=== PATIENT | female | born 1955 | race Caucasian/White ===

== ENCOUNTER 2016-11-01 09:10 | Inpatient (IN) | payer OTHER ==
[2016-11-03] MEDS ORDERED: FLU VACC QS2016-17 36MOS UP/PF 0.5 ML SYRINGE IM ONE (15:45)
[2016-11-03] MEDS ORDERED: traMADol HCl 50 MG TAB PO PRN ×2 (19:06)
[2016-11-03] MEDS ORDERED: Zolpidem Tartrate 5 MG TAB PO PRN (19:07)
[2016-11-03] MEDS ORDERED: Ondansetron ODT 4 MG TAB PO PRN (19:08)
[2016-11-03] MEDS ORDERED: Promethazine HCl 25 MG SUPP PR PRN (19:11)
[2016-11-03] MEDS ORDERED: RIZATRIPTAN PO PRN (19:11)
[2016-11-03] MEDS ORDERED: Bisacodyl 5 MG TAB PO PRN (19:13)
[2016-11-03] MEDS ORDERED: diphenhydrAMINE HCl 50 MG/ML 1 ML VIAL IVP PRN (19:14)
[2016-11-03] MEDS: HYDROcodone/Acetaminophen 5/325 mg Tablet PO PRN ×2 (19:33→23:53)
[2016-11-03] MEDS: Amitriptyline HCl 25 MG TAB PO SCH (20:32)
[2016-11-03] MEDS: Famotidine 20 MG TAB PO SCH (20:33)
[2016-11-03] MEDS: Docusate 100 MG CAP PO SCH (20:33)
[2016-11-03] MEDS: Atorvastatin Calcium 10 MG TAB PO SCH (20:33)
[2016-11-03] MEDS: Potassium Chloride 20 MEQ TAB PO SCH (20:34)
[2016-11-03] MEDS: Cyclobenzaprine 10 MG TAB PO PRN (21:07)
[2016-11-04] MEDS: HYDROcodone/Acetaminophen 5/325 mg Tablet PO PRN ×5 (05:53→22:45)
[2016-11-04] MEDS: Potassium Chloride 20 MEQ TAB PO SCH ×2 (09:48→20:30)
[2016-11-04] MEDS: predniSONE 20 MG TAB PO SCH (09:49)
[2016-11-04] MEDS: Docusate 100 MG CAP PO SCH ×2 (09:49→20:30)
[2016-11-04] MEDS: Famotidine 20 MG TAB PO SCH ×2 (09:55→20:30)
[2016-11-04] MEDS: TART CHERRY PO SCH (09:58)
[2016-11-04] MEDS: Bisacodyl 10 MG SUPP PR PRN (14:17)
[2016-11-04] MEDS: Atorvastatin Calcium 10 MG TAB PO SCH (20:30)
[2016-11-04] MEDS: Amitriptyline HCl 25 MG TAB PO SCH (20:30)
[2016-11-04] MEDS: Cyclobenzaprine 10 MG TAB PO PRN (23:31)
[2016-11-04] MEDS: Mag-Al Plus 1200 MG/1200 MG/120 MG/30 ML UDCUP PO PRN (23:55)
[2016-11-05] MEDS: Docusate 100 MG CAP PO SCH ×2 (08:38→20:43)
[2016-11-05] MEDS: predniSONE 20 MG TAB PO SCH (08:38)
[2016-11-05] MEDS: Famotidine 20 MG TAB PO SCH ×2 (08:38→20:44)
[2016-11-05] MEDS: Potassium Chloride 20 MEQ TAB PO SCH ×2 (08:38→20:44)
[2016-11-05] MEDS: HYDROcodone/Acetaminophen 5/325 mg Tablet PO PRN ×4 (08:39→23:46)
[2016-11-05] MEDS: TART CHERRY PO SCH (08:44)
[2016-11-05] MEDS: Mag-Al Plus 1200 MG/1200 MG/120 MG/30 ML UDCUP PO PRN (12:37)
[2016-11-05] MEDS ORDERED: HYDROcodone/Acetaminophen 5/325 mg Tablet ONE ×3 (19:00→23:44)
[2016-11-05] MEDS: Cyclobenzaprine 10 MG TAB PO PRN (19:03)
[2016-11-05] MEDS: Amitriptyline HCl 25 MG TAB PO SCH (20:44)
[2016-11-05] MEDS: Atorvastatin Calcium 10 MG TAB PO SCH (20:44)
[2016-11-06] MEDS ORDERED: RIZATRIPTAN 10 MG PO PRN ×2 (08:23→08:24)
[2016-11-06] MEDS: predniSONE 20 MG TAB PO SCH (08:53)
[2016-11-06] MEDS: Cyclobenzaprine 10 MG TAB PO PRN ×2 (08:53→21:10)
[2016-11-06] MEDS: Docusate 100 MG CAP PO SCH ×2 (08:53→21:12)
[2016-11-06] MEDS: Potassium Chloride 20 MEQ TAB PO SCH ×2 (08:53→21:11)
[2016-11-06] MEDS: Ascorbic Acid 500 mg Chewable Tablet PO SCH (08:54)
[2016-11-06] MEDS: Famotidine 20 MG TAB PO SCH ×2 (08:54→21:12)
[2016-11-06 11:01] VITALS: BMI 18.0
[2016-11-06] MEDS ORDERED: HYDROcodone/Acetaminophen 5/325 mg Tablet ONE (13:13)
[2016-11-06] MEDS: HYDROcodone/Acetaminophen 5/325 mg Tablet PO PRN ×3 (13:18→21:12)
[2016-11-06] MEDS: Atorvastatin Calcium 10 MG TAB PO SCH (21:10)
[2016-11-06] MEDS: Amitriptyline HCl 25 MG TAB PO SCH (21:12)
[2016-11-07] MEDS: HYDROcodone/Acetaminophen 5/325 mg Tablet PO PRN ×4 (01:08→19:57)
[2016-11-07] MEDS: Famotidine 20 MG TAB PO SCH ×2 (09:40→20:41)
[2016-11-07] MEDS: Potassium Chloride 20 MEQ TAB PO SCH ×2 (09:40→20:42)
[2016-11-07] MEDS: Ascorbic Acid 500 mg Chewable Tablet PO SCH (09:40)
[2016-11-07] MEDS: Cyclobenzaprine 10 MG TAB PO PRN (09:40)
[2016-11-07] MEDS: Docusate 100 MG CAP PO SCH ×2 (09:41→20:43)
[2016-11-07] MEDS: predniSONE 20 MG TAB PO SCH (09:41)
[2016-11-07] MEDS: Bisacodyl 10 MG SUPP PR PRN (11:01)
[2016-11-07] MEDS: Amitriptyline HCl 25 MG TAB PO SCH (20:42)
[2016-11-07] MEDS: Atorvastatin Calcium 10 MG TAB PO SCH (20:42)
[2016-11-08] MEDS: Cyclobenzaprine 10 MG TAB PO PRN (00:36)
[2016-11-08] MEDS: HYDROcodone/Acetaminophen 5/325 mg Tablet PO PRN ×2 (00:36→09:19)
[2016-11-08] MEDS: Famotidine 20 MG TAB PO SCH ×2 (09:22→21:42)
[2016-11-08] MEDS: Docusate 100 MG CAP PO SCH ×2 (09:22→21:42)
[2016-11-08] MEDS: Ascorbic Acid 500 mg Chewable Tablet PO SCH (09:22)
[2016-11-08] MEDS: Potassium Chloride 20 MEQ TAB PO SCH ×2 (09:23→21:43)
[2016-11-08] MEDS: predniSONE 20 MG TAB PO SCH (09:23)
[2016-11-08] MEDS: HYDROcodone/Acetaminophen 7.5/325 mg Tablet PO PRN ×2 (14:41→20:54)
[2016-11-08] MEDS: Amitriptyline HCl 25 MG TAB PO SCH (21:40)
[2016-11-08] MEDS: Atorvastatin Calcium 10 MG TAB PO SCH (21:41)
[2016-11-09] MEDS: HYDROcodone/Acetaminophen 7.5/325 mg Tablet PO PRN ×2 (01:56→20:48)
[2016-11-09] MEDS: Cyclobenzaprine 10 MG TAB PO PRN (01:58)
[2016-11-09] MEDS: HYDROcodone/Acetaminophen 10/325 mg Tablet PO PRN ×3 (06:04→16:37)
[2016-11-09] MEDS: Famotidine 20 MG TAB PO SCH ×2 (09:27→20:50)
[2016-11-09] MEDS: Docusate 100 MG CAP PO SCH ×2 (09:33→20:51)
[2016-11-09] MEDS: Ascorbic Acid 500 mg Chewable Tablet PO SCH (09:33)
[2016-11-09] MEDS: Potassium Chloride 20 MEQ TAB PO SCH ×2 (09:34→20:50)
[2016-11-09] MEDS: predniSONE 20 MG TAB PO SCH (09:37)
[2016-11-09] MEDS: Atorvastatin Calcium 10 MG TAB PO SCH (20:50)
[2016-11-09] MEDS: Amitriptyline HCl 25 MG TAB PO SCH (20:51)
[2016-11-10] MEDS ORDERED: Cyclobenzaprine 10 MG TAB ONE (01:02)
[2016-11-10] MEDS: Cyclobenzaprine 10 MG TAB PO PRN (01:06)
[2016-11-10] MEDS: HYDROcodone/Acetaminophen 7.5/325 mg Tablet PO PRN ×2 (01:06→11:33)
[2016-11-10] MEDS: HYDROcodone/Acetaminophen 10/325 mg Tablet PO PRN (06:24)
[2016-11-10 06:30] VITALS: BP 93/52; TEMP 98.5
[2016-11-10 06:50] LABS: #Basophils 0.1 thou/uL (0.0-0.2); #Lymphocytes 1.9 thou/uL (1.20-3.40); #Neutrophils 8.6 thou/uL (1.40-6.50); %Basophils 0.7 % (0.0-1.0); %Eosinophils 0.3 % (0.0-10.0); %Monocytes 8.6 % (0.0-10.0); Hematocrit 33.6 % (36.0-47.0); Mean Platelet Volume 4.7 fL (7.4-10.4); Red Blood Cell (RBC) Count 3.48 mill/uL (4.20-5.40); White Blood Cell (WBC) Count 11.7 thou/uL (4.8-10.8)
[2016-11-10] MEDS: Docusate 100 MG CAP PO SCH (10:37)
[2016-11-10] MEDS: Ascorbic Acid 500 mg Chewable Tablet PO SCH (10:37)
[2016-11-10] MEDS: Famotidine 20 MG TAB PO SCH (10:38)
[2016-11-10] MEDS: Potassium Chloride 20 MEQ TAB PO SCH (10:38)
[2016-11-10] MEDS: predniSONE 20 MG TAB PO SCH (10:39)
[2016-11-11] MEDS ORDERED: predniSONE 10 MG TAB PO SCH (09:00)
[2016-11-18] MEDS ORDERED: predniSONE 10 MG TAB PO SCH (09:00)
== END 2016-11-10 11:45 | disposition home or self-care (01) | DRG 687 ==
LOC: BURMED 11-03 15:08
PROVIDERS: ADMIT Family Medicine; ATTEND Family Medicine
DX: C65.2 Malignant neoplasm of left renal pelvis (principal); E27.40 Unspecified adrenocortical insufficiency; F32.9 Major depressive disorder, single episode, unspecified; Z98.890 Other specified postprocedural states; D64.9 Anemia, unspecified; K58.1 Irritable bowel syndrome with constipation; G25.81 Restless legs syndrome; G43.909 Migraine, unspecified, not intractable, without status migrainosus; E78.5 Hyperlipidemia, unspecified; G47.00 Insomnia, unspecified; F41.9 Anxiety disorder, unspecified
CPT/HCPCS: 36415; 85025; G8978-GP-CJ; G8979-GP-CI; G8987-GO-CJ; G8988-GO-CH; J7506; Q0162

== ENCOUNTER 2016-12-13 08:02 | Outpatient (CLI) | payer OTHER ==
[2016-12-13 09:11] LABS: ALT (SGPT) 17 U/L (0-55); AST (SGOT) 17 U/L (5-34); Albumin 4.5 g/dL (3.5-5.0); Alkaline Phosphatase 71 U/L (40-150); Anion Gap 14 mmol/L (10-20); BUN (Urea Nitrogen) 22 mg/dL (9.8-20.1); Bilirubin, Total 0.4 mg/dL (0.2-1.2); Calc. Creatinine Clearance 0 mL/min (70-130); Calcium 9.9 mg/dL (7.8-10.44); Carbon Dioxide 27 mmol/L (22-29); Chloride 105 mmol/L (98-107); Estimated GFR-MDRD 49; Globulin 2.6 g/dL (2.4-3.5); Glucose 90 mg/dL (70-105); Potassium 4.3 mmol/L (3.5-5.1); Protein, Total 7.1 g/dL (6.0-8.3); Sodium 142 mmol/L (136-145)
[2016-12-13 09:28] LABS: Free T4 (Free Thyroxine) 0.76 ng/dL (0.70-1.48); Thyroid Stimulating Hormone 1.1574 uIU/mL (0.35-4.94)
== END 2016-12-13 08:03 | disposition home or self-care (01) ==
LOC: BURLAB 08:02
PROVIDERS: ATTEND Internal Medicine Endocrinology, Diabetes & Metabolism
DX: I95.9 Hypotension, unspecified (principal)
CPT/HCPCS: 36415; 80053; 82024; 82533; 84439; 84443

== ENCOUNTER 2017-03-09 13:14 | Outpatient (CLI) | payer OTHER ==
[2017-03-09 13:36] LABS: Bilirubin Negative (Negative); Blood, Urine Moderate (Negative); Clarity Slightly Cloudy (Clear); Glucose, Urine (Dipstick) Negative (Negative); Leukocyte Small (Negative); Nitrite Positive (Negative); Protein, Urine (Dipstick) Trace mg/dL (Neg-Trace); Specific Gravity, Urine 1.015 (1.005-1.030); Urobilinogen 0.2 mg/dL (0.2-1.0)
[2017-03-09 13:45] LABS: Bacteria/HPF Rare-Few HPF (None Seen); Crystals/HPF None Seen HPF (Negative); Hyaline Casts/LPF NONE SEEN LPF (0-3 Hyaline); Other Casts/LPF None Seen LPF (0-3 Hyaline); Oval Fat Bodies/HPF None Seen HPF (None Seen); Renal Epithelial None Seen HPF (0-3); Sperm/HPF None Seen HPF (None Seen); Squamous Epithelial None Seen HPF (0-3); Transitional Epithelial NONE SEEN HPF (0-3); Trichomonas/HPF None Seen HPF (None Seen); Yeast-All Forms None Seen HPF (None Seen)
[2017-03-09 13:50] LABS: Anion Gap 15 mmol/L (10-20); BUN (Urea Nitrogen) 19 mg/dL (9.8-20.1); Calc. Creatinine Clearance 0 mL/min (70-130); Carbon Dioxide 25 mmol/L (22-29); Chloride 104 mmol/L (98-107); Estimated GFR-MDRD 50; Glucose 81 mg/dL (70-105); Potassium 4.1 mmol/L (3.5-5.1); Sodium 140 mmol/L (136-145)
[2017-03-09 14:00] LABS: #Basophils 0.1 thou/uL (0.0-0.2); #Eosinphils 0.2 thou/uL (0.0-0.7); #Lymphocytes 1.6 thou/uL (1.20-3.40); #Monocytes 0.6 thou/uL (0.11-0.59); #Neutrophils 5.8 thou/uL (1.40-6.50); %Basophils 1.5 % (0.0-1.0); %Eosinophils 2.9 % (0.0-10.0); %Lymphocytes 19.4 % (21.0-51.0); %Monocytes 7.3 % (0.0-10.0); %Neutrophils 68.9 % (42.0-75.0); Hemoglobin 11.4 g/dL (12.0-16.0); Mean Corpuscular HGB CONC 32.1 g/dL (32.0-36.0); Mean Corpuscular Hemoglobin 31.2 pg (27.0-31.0); Mean Platelet Volume 5.4 fL (7.4-10.4); Platelet Count 207 thou/uL (130-400); RBC Distribution Width 12.6 % (11.5-14.5); Red Blood Cell (RBC) Count 3.67 mill/uL (4.20-5.40); White Blood Cell (WBC) Count 8.4 thou/uL (4.8-10.8)
== END 2017-03-09 13:15 | disposition home or self-care (01) ==
LOC: BURLAB 13:14
PROVIDERS: ATTEND Urology
DX: C67.9 Malignant neoplasm of bladder, unspecified (principal)
CPT/HCPCS: 36415; 80048; 81001; 85025; 87086

== ENCOUNTER 2017-04-20 10:01 | Outpatient (CLI) | payer OTHER ==
[2017-04-20 11:54] LABS: ALT (SGPT) 16 U/L (8-55); AST (SGOT) 18 U/L (5-34); Albumin 4.5 g/dL (3.5-5.0); Alkaline Phosphatase 67 U/L (40-150); Bilirubin, Direct 0.2 mg/dL (0.1-0.3); Bilirubin, Total 0.5 mg/dL (0.2-1.2); Cardiac Risk 3.2 (Less than 4.5); Cholesterol 155 mg/dl (< 200 Desired); HDL Cholesterol 48 mg/dL (>60 Neg Risk); LDL Cholesterol, Calculated 88 mg/dL; Protein, Total 6.7 g/dL (6.0-8.3); Triglycerides 94 mg/dL (Less than 150)
== END 2017-04-20 10:02 | disposition home or self-care (01) ==
LOC: BURLAB 10:01
PROVIDERS: ATTEND Internal Medicine
DX: E78.01 Familial hypercholesterolemia (principal); Z79.899 Other long term (current) drug therapy
CPT/HCPCS: 36415; 80061; 80076

== ENCOUNTER 2017-05-31 14:07 | Outpatient (CLI) | payer OTHER ==
[2017-05-31 14:53] LABS: Bilirubin Negative (Negative); Blood, Urine Moderate (Negative); Clarity Cloudy (Clear); Glucose, Urine (Dipstick) Negative (Negative); Leukocyte Large (Negative); Nitrite Positive (Negative); Protein, Urine (Dipstick) 100 mg/dL (Neg-Trace); Urobilinogen 0.2 mg/dL (0.2-1.0); pH, Urine 6.5 (5.0-9.0)
[2017-05-31 14:55] LABS: ALT (SGPT) 15 U/L (8-55); AST (SGOT) 15 U/L (5-34); Albumin 4.1 g/dL (3.5-5.0); Alkaline Phosphatase 62 U/L (40-150); Bilirubin, Direct 0.2 mg/dL (0.1-0.3); Bilirubin, Total 0.3 mg/dL (0.2-1.2); Protein, Total 6.7 g/dL (6.0-8.3)
[2017-05-31 15:32] LABS: Bacteria/HPF Rare-Few HPF (None Seen); Crystals/HPF None Seen HPF (Negative); Hyaline Casts/LPF NONE SEEN LPF (0-3 Hyaline); Other Casts/LPF None Seen LPF (0-3 Hyaline); Oval Fat Bodies/HPF None Seen HPF (None Seen); Renal Epithelial None Seen HPF (0-3); Sperm/HPF None Seen HPF (None Seen); Squamous Epithelial None Seen HPF (0-3); Transitional Epithelial NONE SEEN HPF (0-3); Trichomonas/HPF None Seen HPF (None Seen); Yeast-All Forms None Seen HPF (None Seen)
== END 2017-05-31 14:08 | disposition home or self-care (01) ==
LOC: BURLAB 14:07
PROVIDERS: ATTEND Urology
DX: A31.8 Other mycobacterial infections (principal); R35.0 Frequency of micturition
CPT/HCPCS: 36415; 80076; 81001; 87086

== ENCOUNTER 2018-06-22 10:09 | Emergency (ER) | payer OTHER ==
[2018-06-22 11:01] LABS: #Basophils 0.1 thou/uL (0.0-0.2); #Eosinphils 0.1 thou/uL (0.0-0.7); #Lymphocytes 0.6 thou/uL (1.20-3.40); #Monocytes 0.5 thou/uL (0.11-0.59); #Neutrophils 15.5 thou/uL (1.40-6.50); %Basophils 0.4 % (0.0-1.0); %Eosinophils 0.4 % (0.0-10.0); %Lymphocytes 3.6 % (21.0-51.0); %Monocytes 3.2 % (0.0-10.0); %Neutrophils 92.4 % (42.0-75.0); Hemoglobin 10.6 g/dL (12.0-16.0); Mean Corpuscular Hemoglobin 29.3 pg (27.0-31.0); Mean Corpuscular Volume 88.7 fL (78.0-98.0); Platelet Count 599 thou/uL (130-400); RBC Distribution Width 13.5 % (11.5-14.5); Red Blood Cell (RBC) Count 3.63 mill/uL (4.20-5.40); White Blood Cell (WBC) Count 16.7 thou/uL (4.8-10.8)
[2018-06-22 11:11] LABS: ALT (SGPT) 10 U/L (8-55); AST (SGOT) 20 U/L (5-34); Albumin 4.1 g/dL (3.4-4.8); Alkaline Phosphatase 122 U/L (40-150); Anion Gap 16 mmol/L (10-20); BUN (Urea Nitrogen) 12 mg/dL (9.8-20.1); Bilirubin, Total 0.6 mg/dL (0.2-1.2); Calc. Creatinine Clearance 0 mL/min (70-130); Calcium 10.4 mg/dL (7.8-10.44); Carbon Dioxide 25 mmol/L (23-31); Chloride 100 mmol/L (98-107); Estimated GFR-MDRD 75; Globulin 3.2 g/dL (2.4-3.5); Glucose 105 mg/dL (80-115); Potassium 3.8 mmol/L (3.5-5.1); Protein, Total 7.3 g/dL (6.0-8.3); Sodium 137 mmol/L (136-145)
[2018-06-22 11:40] LABS: Bilirubin Negative (Negative); Blood, Urine Negative (Negative); Clarity Clear (Clear); Glucose, Urine (Dipstick) Negative (Negative); Leukocyte Negative (Negative); Nitrite Negative (Negative); Protein, Urine (Dipstick) Negative (Neg-Trace); Specific Gravity, Urine 1.006 (1.005-1.030); Urobilinogen 0.2 mg/dL (0.2-1.0); pH, Urine 5.5 (5.0-9.0)
--- NOTE | 2018-06-22 15:20 | RAD ---
PORTABLE CHEST: Date: 06/22/18 Comparison is made with the 07/17/17 study done at [facility]. FINDINGS: Today's exam shows a normal sized heart and clear lungs. However, there are at least three subtle rou nded densities seen over the left hemithorax which are not definitely in bone. 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 T here are no effusions. The mediastinum appears normal. The heart is normal in size. The trachea is mi dline. Regarding the ribs, no fractures were appreciated, nor where there effusions. Subtle rib fract ures might be missed on the study. IMPRESSION: 1. No fracture seen. 2. Some equivocal findings in the patient's left lung. An elective CT is recommended. Findings and need for follow-up discussed with Dr. Hernandez at 1426 hours on 06/22/18. CODE CR. POS: HOME
== END 2018-06-22 13:45 | disposition home or self-care (01) ==
LOC: BURERS 10:09
DX: R50.9 Fever, unspecified (principal); G43.909 Migraine, unspecified, not intractable, without status migrainosus; F41.9 Anxiety disorder, unspecified; E78.5 Hyperlipidemia, unspecified; M85.80 Other specified disorders of bone density and structure, unspecified site
CPT/HCPCS: 36415; 71045; 80053; 81003; 83605; 85025; 87040; 87086; 96361; 96365; J1956